=== PATIENT | male | born 1990 | race Caucasian/White ===

== ENCOUNTER 2023-05-03 20:52 | Emergency (ER) | payer MEDICAID ==
[~2023-05-03] VITALS: Ht 182.9 cm; Wt 73.0 kg
[2023-05-03 20:59] VITALS: BP 129/73; PULSE 100; RESP 14; TEMP 98.8; O2SAT 98
== END 2023-05-04 02:10 | disposition left against medical advice (07) ==
LOC: ER 20:52
DX: Z53.21 Procedure and treatment not carried out due to patient leaving prior to being seen by health care provider (principal)
CPT/HCPCS: 99281